=== PATIENT | female | born 1955 | race Caucasian/White ===

== ENCOUNTER → 2017-05-20 | Outpatient (CLI) | payer OTHER ==
[~2017-05-20] MED LIST: ALBU90OI61 INH; ASPI81EC PO; BUDE6HFA INH; Bentyl10 MG; CITA20 PO; CLON.1 PO; DILT240 PO; DOXE10 PO; ERGO400 PO; ESTR2 PO; HYDACE7.5 PO; HYDCHL25 PO; LANS15EC; LEVSOD25 PO; MECL12.5; META800 PO; MOMENI; OMEP20ER PO; PRAV20 PO; RANI150EL; SUCR1; TELM40 PO; TIOT18 IH; TIZA4 PO; TIZANIDINE HCL4 MG; TRIHYD253A PO
[2017-05-20 11:23] LABS: BASOPHILS ABSOLUTE AUTO 0.05 K/mm3 (0.00-0.23); BASOPHILS PERCENT AUTO 1 % (0-2); EOSINOPHILS ABSOLUTE AUTO 0.08 K/mm3 (0.00-0.68); EOSINOPHILS PERCENT AUTO 1 % (0-6); Hematocrit 50.5 % (33.0-51.0); Hemoglobin 17.8 g/dL (11.5-16.0); IMMATURE GRAN ABSOLUTE AUTO 0.04 K/mm3 (0.00-0.10); IMMATURE GRAN PERCENT AUTO 0 % (0-1); LYMPHOCYTES ABSOLUTE AUTO 1.79 K/mm3 (0.84-5.20); LYMPHOCYTES PERCENT AUTO 19 % (21-46); MONOCYTES ABSOLUTE AUTO 0.96 K/mm3 (0.16-1.47); MONOCYTES PERCENT AUTO 10 % (4-13); Mean Corpuscular HGB 32.8 pg (26.0-34.0); Mean Corpuscular HGB Conc 35.2 g/dL (31.5-36.5); Mean Corpuscular Volume 93 fL (80-100); Mean Platelet Volume 9.4 fL (9.1-12.4); NEUTROPHILS ABSOLUTE AUTO 6.47 K/mm3 (1.96-9.15); NEUTROPHILS PERCENT AUTO 69 % (41-73); Platelet Count 258 K/mm3 (150-400); RDW Coefficient Variation 13.1 % (11.7-14.2); RDW Standard Deviation 44.6 fL (35.1-46.3); Red Blood Cell Count 5.42 M/mm3 (3.80-5.20); White Blood Cell Count 9.39 K/mm3 (4.00-11.30)
[2017-05-20 11:35] LABS: Alanine Aminotransfer (ALT/SGP 31 U/L (12-78); Albumin, Blood 3.9 g/dL (3.4-5.0); Albumin/Globulin Ratio 1.1 (0.8-1.8); Alk Phos 88 U/L (40-126); Anion Gap 20 mmol/L (6-16); Aspartate Aminotrans (AST/SGOT 28 U/L (12-37); Bilirubin, Total 0.6 mg/dL (0.1-1.0); Blood Urea Nitrogen 21 mg/dL (8-24); Bun/Creatinine Ratio 23.1 (12.0-20.0); CO2, Blood 20 mmol/L (21-32); Calcium, Blood 9.5 mg/dL (8.5-10.1); Chloride, Blood 101 mmol/L (98-108); Creatinine, Blood 0.91 mg/dL (0.40-1.00); Globulin, Blood 3.5 g/dL (2.2-4.0); Glomerular Filtration Rate >60 (60-); Glucose, Blood 98 mg/dL (70-99); Sodium, Blood 141 mmol/L (136-145); Total Protein, Blood 7.4 g/dL (6.4-8.2)
== END | disposition home or self-care (01) ==
LOC: LAB SHORT 11:18 → LAB EV 11:18
PROVIDERS: Family Medicine
DX: R10.9 Unspecified abdominal pain (principal)
CPT/HCPCS: 80053; 83690; 85025

== ENCOUNTER 2017-11-19 11:15 | Day surgery (SDC) | payer OTHER ==
[~2017-11-19] VITALS: Ht 170.2 cm; Wt 60.1 kg
== END 2017-11-19 14:53 | disposition home or self-care (01) ==
LOC: ORSCSDS 11:15
PROVIDERS: Internal Medicine Gastroenterology
PROC: 0DBL8ZX Excision of Transverse Colon, Via Natural or Artificial Opening Endoscopic, Diagnostic (ICD-10-PCS; principal; 2017-11-19 12:45)
PROC: 0DBK8ZX Excision of Ascending Colon, Via Natural or Artificial Opening Endoscopic, Diagnostic (ICD-10-PCS; principal; 2017-11-19 12:45)
PROC: 0DB98ZX Excision of Duodenum, Via Natural or Artificial Opening Endoscopic, Diagnostic (ICD-10-PCS; principal; 2017-11-19 12:45)
PROC: 0DBH8ZX Excision of Cecum, Via Natural or Artificial Opening Endoscopic, Diagnostic (ICD-10-PCS; principal; 2017-11-19 12:45)
PROC: 0DB68ZX Excision of Stomach, Via Natural or Artificial Opening Endoscopic, Diagnostic (ICD-10-PCS; principal; 2017-11-19 12:45)
DX: R10.13 Epigastric pain (principal); K44.9 Diaphragmatic hernia without obstruction or gangrene; K29.80 Duodenitis without bleeding; D12.0 Benign neoplasm of cecum; D12.2 Benign neoplasm of ascending colon; D12.3 Benign neoplasm of transverse colon; K57.30 Diverticulosis of large intestine without perforation or abscess without bleeding; K64.4 Residual hemorrhoidal skin tags; K64.8 Other hemorrhoids; Z12.11 Encounter for screening for malignant neoplasm of colon; Z86.010 Personal history of colon polyps; J44.9 Chronic obstructive pulmonary disease, unspecified; I10 Essential (primary) hypertension; E03.9 Hypothyroidism, unspecified; E78.5 Hyperlipidemia, unspecified; M79.7 Fibromyalgia; I73.9 Peripheral vascular disease, unspecified; F17.210 Nicotine dependence, cigarettes, uncomplicated; Z79.82 Long term (current) use of aspirin; Z79.899 Other long term (current) drug therapy
CPT/HCPCS: 88305; 88342; J2250; J2405; J7120

== ENCOUNTER 2018-06-03 13:40 | Day surgery (SDC) | payer OTHER ==
[~2018-06-03] VITALS: Ht 170.2 cm; Wt 62.0 kg
[~2018-06-03 13:40] MED LIST changes: +ALBU2.5V5 NEB; +ANORO ELLIPTA1 EACH INH; -ASPI81EC PO; +Aspirin EC81 MG PO; +BUME2 PO; -Bentyl10 MG; +Bentyl10 MG PO; +Cardizem CD 24240 MG PO; -DILT240 PO; +GABA100 PO; +Motion Sickness25 M1 PO; +OXYC5 PO; +Omeprazole20 M1 PO; +SUCR1 PO; -TIZANIDINE HCL4 MG; +TIZANIDINE HCL4 MG PO
--- NOTE | 2018-06-03 15:37 | NUR ---
PT C/O "THROBBING" HEADACHE, ON LEFT SIDE OF HEAD & NECK. PT STS SHE EXPERIENCES SIMILIAR HEADACHES WHEN HER BP IS HIGH. PT C/O SUDDEN ONSET NAUSEA & DIZZINESS, REQUESTS HOB ELEVATED. EMESIS BAG PROVIDED, NO VOMITING OR WRETCHING AT THIS TIME.
--- NOTE | 2018-06-03 15:40 | NUR ---
BP CUFF ROTATED TO DIFFERENT ARM TO ENSURE ACCURATE READING. PRESSURES CONTINUE TO REMAIN IN 200'S DESPITE ADMINISTRATION OF APRESOLINE.
--- NOTE | 2018-06-03 15:49 | NUR ---
STANDBY ASSIST TO RESTROOM.
--- NOTE | 2018-06-03 15:50 | NUR ---
ANESTHESIA NOTIFIED OF ELEVATED BP THROUGHOUT APRESOLINE DOSES.
--- NOTE | 2018-06-03 15:52 | NUR ---
PT FLUSH, WARM TO THE TOUCH. TEMPERATE RETAKEN, 98.1 COMPLAINING OF CONTINUED NAUSEA & DIZZINESS. APPROX 10ML EMESIS VOMITED.
--- NOTE | 2018-06-03 16:08 | NUR ---
PT VOMITING. 50ML EMESIS IN BAG.
--- NOTE | 2018-06-03 16:09 | NUR ---
DR. NIÑO AT BEDSIDE TO INFORM PATIENT OF CANCELLATION OF PROCEDURE & IMPENDING TRANSFER FROM [facility] TO [facility] EMERGENCY DEPT.
--- NOTE | 2018-06-03 16:13 | NUR ---
06/03/18 1613 Amira An RECIEVED REPORT FROM IRIS AYERS AFTER CONSULTING WITH DR VAIL AND DR NIÑO, IT HAS BEEN AGREED TO SEND PT TO THE ER DUE TO SYSTOLIC >210 DESPITE 40MG HYDRALAZINE. PT BEGAN TO COMPLAIN OF NAUSEA AT APPROXIMATELY 1550 AND WRETCHED APPROXIMATELY 10ML OF LIGHT BROWN SPUTUM. PT VOMITED FOR A SECOND TIME AT 1610 50MLS. TEMPERATURE 98.[address] VAIL GAVE REPORT TO ER PHYSICIAN AND WILL TRANSFER TO ER AT THIS TIME.
[2018-06-03] MEDS ORDERED: Cartia Xt240 MG PO (17:00)
== END 2018-06-03 14:28 | disposition other institution (70) ==
LOC: ORSCSDS 13:40
DX: D12.6 Benign neoplasm of colon, unspecified (principal); Z53.9 Procedure and treatment not carried out, unspecified reason
CPT/HCPCS: J0360; J7120

== ENCOUNTER 2018-06-03 16:34 | Emergency (ER) | payer OTHER ==
[~2018-06-03] VITALS: Ht 170.2 cm; Wt 61.7 kg
[2018-06-03] MEDS ORDERED: Cartia Xt240 MG PO (17:00)
== END 2018-06-03 18:30 | disposition home or self-care (01) ==
LOC: ER 16:34
DX: R11.2 Nausea with vomiting, unspecified (principal); R51 Headache; E03.9 Hypothyroidism, unspecified; E78.5 Hyperlipidemia, unspecified; J44.9 Chronic obstructive pulmonary disease, unspecified; M19.90 Unspecified osteoarthritis, unspecified site; M79.7 Fibromyalgia; I73.9 Peripheral vascular disease, unspecified; F17.210 Nicotine dependence, cigarettes, uncomplicated
CPT/HCPCS: 70450; 93005; 93010; 96374; 96375; 99284-25; J0360; J0780; J1170; J1200; J2405; J7120

== ENCOUNTER → 2018-08-24 | Outpatient (CLI) | payer OTHER ==
[~2018-08-24] MED LIST changes: +Cartia Xt240 MG PO
== END | disposition home or self-care (01) ==
LOC: LAB SHORT 11:20 → PLD 11:20
DX: D48.5 Neoplasm of uncertain behavior of skin (principal)
CPT/HCPCS: 88305

== ENCOUNTER 2019-01-01 19:35 | Emergency (ER) | payer OTHER ==
[~2019-01-01] VITALS: Ht 170.2 cm; Wt 66.7 kg
[2019-01-01] MEDS ORDERED: [UNRECOGNIZED DRUG - OTHER] (20:20)
== END 2019-01-01 21:40 | disposition home or self-care (01) ==
LOC: ER 19:35
DX: S61.210A Laceration without foreign body of right index finger without damage to nail, initial encounter (principal); I10 Essential (primary) hypertension; J44.9 Chronic obstructive pulmonary disease, unspecified; E03.9 Hypothyroidism, unspecified; E78.5 Hyperlipidemia, unspecified; M19.90 Unspecified osteoarthritis, unspecified site; M79.7 Fibromyalgia; F17.210 Nicotine dependence, cigarettes, uncomplicated; Z88.1 Allergy status to other antibiotic agents; Z88.8 Allergy status to other drugs, medicaments and biological substances; Z79.82 Long term (current) use of aspirin; Z79.899 Other long term (current) drug therapy; W23.0XXA Caught, crushed, jammed, or pinched between moving objects, initial encounter
CPT/HCPCS: 12001; 90471; 90714; 99282-25

== ENCOUNTER → 2019-03-17 | Outpatient (CLI) | payer OTHER ==
[~2019-03-17] MED LIST changes: +[UNRECOGNIZED DRUG - OTHER]
== END ==
LOC: LAB EV 14:52 → LAB SHORT 14:52
DX: N39.0 Urinary tract infection, site not specified (principal)
CPT/HCPCS: 87077; 87086; 87186

== ENCOUNTER → 2019-03-21 | Outpatient (CLI) | payer OTHER | END | disposition home or self-care (01) | LOC: LAB SHORT 14:58 → LAB 14:58 | DX: N39.0 Urinary tract infection, site not specified (principal) | CPT/HCPCS: 87086 ==

== ENCOUNTER 2019-07-24 16:00 | Emergency (ER) | payer OTHER ==
[~2019-07-24] VITALS: Ht 170.2 cm; Wt 68.0 kg
[~2019-07-24 16:00] MED LIST changes: -ALBU2.5V5 NEB; +ALBU90OI INH; +Citalopram HBr20 MG PO; -ESTR2 PO; +ESTRADIOL2 MG PO; -LEVSOD25 PO; +LEVSOD50 PO; -[UNRECOGNIZED DRUG - OTHER]
[2019-07-24 16:33] LABS: BASOPHILS ABSOLUTE AUTO 0.17 K/mm3 (0.00-0.23); BASOPHILS PERCENT AUTO 1 % (0-2); EOSINOPHILS ABSOLUTE AUTO 0.36 K/mm3 (0.00-0.68); EOSINOPHILS PERCENT AUTO 2 % (0-6); Hematocrit 47.9 % (33.0-51.0); Hemoglobin 16.3 g/dL (11.5-16.0); IMMATURE GRAN ABSOLUTE AUTO 0.18 K/mm3 (0.00-0.10); IMMATURE GRAN PERCENT AUTO 1 % (0-1); LYMPHOCYTES ABSOLUTE AUTO 2.43 K/mm3 (0.84-5.20); LYMPHOCYTES PERCENT AUTO 12 % (21-46); MONOCYTES ABSOLUTE AUTO 0.98 K/mm3 (0.16-1.47); MONOCYTES PERCENT AUTO 5 % (4-13); Mean Corpuscular Volume 94 fL (80-100); Mean Platelet Volume 9.1 fL (9.1-12.4); NEUTROPHILS ABSOLUTE AUTO 16.22 K/mm3 (1.96-9.15); NEUTROPHILS PERCENT AUTO 80 % (41-73); Platelet Count 374 K/mm3 (150-400); RDW Coefficient Variation 12.8 % (11.7-14.2); RDW Standard Deviation 44.5 fL (35.1-46.3); Red Blood Cell Count 5.09 M/mm3 (3.80-5.20); White Blood Cell Count 20.34 K/mm3 (4.00-11.30)
[2019-07-24 16:48] LABS: Ethanol (Alcohol), Blood, Med <3 mg/dL
[2019-07-24 16:49] LABS: Alanine Aminotransfer (ALT/SGP 18 U/L (12-78); Albumin, Blood 3.7 g/dL (3.4-5.0); Alk Phos 87 U/L (50-136); Anion Gap 8 mmol/L (6-16); Aspartate Aminotrans (AST/SGOT 17 U/L (12-37); Bilirubin, Total 0.3 mg/dL (0.1-1.0); Blood Urea Nitrogen 16 mg/dL (8-24); Bun/Creatinine Ratio 21.9 (12.0-20.0); CO2, Blood 24 mmol/L (21-32); Calcium, Blood 9.5 mg/dL (8.5-10.1); Chloride, Blood 105 mmol/L (98-108); Creatinine, Blood 0.73 mg/dL (0.40-1.00); Globulin, Blood 3.8 g/dL (2.2-4.0); Glomerular Filtration Rate >60 (60-); Glucose, Blood 137 mg/dL (70-99); Potassium, Blood 3.9 mmol/L (3.5-5.5); Sodium, Blood 137 mmol/L (136-145); Total Protein, Blood 7.5 g/dL (6.4-8.2)
== END 2019-07-25 01:05 | disposition short-term general hospital (02) ==
LOC: ER 16:00
PROVIDERS: Emergency Medicine
DX: R56.9 Unspecified convulsions (principal); I16.9 Hypertensive crisis, unspecified; J44.9 Chronic obstructive pulmonary disease, unspecified; E03.9 Hypothyroidism, unspecified; I11.0 Hypertensive heart disease with heart failure; I50.9 Heart failure, unspecified; E78.5 Hyperlipidemia, unspecified; G62.9 Polyneuropathy, unspecified; I73.9 Peripheral vascular disease, unspecified; F17.210 Nicotine dependence, cigarettes, uncomplicated
CPT/HCPCS: 36415; 70496; 70498; 71045; 80053; 82947; 85025; 93005; 93010; 96365-59; 96366; 96375-59; 99285-25; G0480; J2060; J7050; Q9967

== ENCOUNTER 2020-05-16 11:19 | Emergency (ER) | payer OTHER ==
[~2020-05-16] VITALS: Ht 170.2 cm; Wt 67.6 kg
[2020-05-16] MEDS ORDERED: HYDR1TAB94 PO (12:10)
== END 2020-05-16 13:45 | disposition home or self-care (01) ==
LOC: ER 11:19
DX: M54.5 Low back pain (principal); I10 Essential (primary) hypertension; J44.9 Chronic obstructive pulmonary disease, unspecified; E03.9 Hypothyroidism, unspecified; E78.5 Hyperlipidemia, unspecified; F17.210 Nicotine dependence, cigarettes, uncomplicated; Z79.82 Long term (current) use of aspirin; Z79.899 Other long term (current) drug therapy; Z88.1 Allergy status to other antibiotic agents; Z88.8 Allergy status to other drugs, medicaments and biological substances; W00.0XXA Fall on same level due to ice and snow, initial encounter
CPT/HCPCS: 72100; 99283-25

== ENCOUNTER → 2021-01-02 | Outpatient (CLI) | payer OTHER ==
[~2021-01-02] MED LIST changes: +HYDR1TAB94 PO
== END ==
LOC: LAB 10:07 → LAB SHORT 10:07
DX: R05 Cough (principal); Z88.1 Allergy status to other antibiotic agents
CPT/HCPCS: 87070; 87205

== ENCOUNTER → 2021-04-22 | Outpatient (CLI) | payer OTHER ==
[2021-04-22 16:47] LABS: LDL/HDL RATIO 2.3; Very Low Density Lipoprot Chol 35 mg/dL (6-32)
[2021-04-22 16:50] LABS: Triiodothyronine, Free 2.63 pg/mL (2.18-3.98)
[2021-04-22 17:02] LABS: Alanine Aminotransfer (ALT/SGP 14 U/L (12-78); Albumin, Blood 3.2 g/dL (3.4-5.0); Albumin/Globulin Ratio 0.8 (0.8-1.8); Alk Phos 91 U/L (50-136); Anion Gap 1 mmol/L (6-16); Aspartate Aminotrans (AST/SGOT 12 U/L (12-37); Bilirubin, Total 0.3 mg/dL (0.1-1.0); Blood Urea Nitrogen 16 mg/dL (8-24); Bun/Creatinine Ratio 18.2 (12.0-20.0); CO2, Blood 32 mmol/L (21-32); Calcium, Blood 9.4 mg/dL (8.5-10.1); Chloride, Blood 104 mmol/L (98-108); Creatinine, Blood 0.88 mg/dL (0.40-1.00); Globulin, Blood 3.9 g/dL (2.2-4.0); Glomerular Filtration Rate >60 (60-); Glucose, Blood 92 mg/dL (70-99); Potassium, Blood 4.6 mmol/L (3.5-5.5); Sodium, Blood 137 mmol/L (136-145); Total Protein, Blood 7.1 g/dL (6.4-8.2)
[2021-04-22 20:51] LABS: CHOL/HDL RATIO 3.9; Cholesterol 244 mg/dL (50-200); Free Thyroxine 1.17 ng/dL (0.70-1.60); HDL Cholesterol 63 mg/dL (>39); Low Density Lipoprotein Chol 146 mg/dL (0-110); Triglycerides 177 mg/dL (30-160)
== END ==
LOC: LAB SHORT 09:00 → LAB 09:00
PROVIDERS: Hospitalist
DX: E03.9 Hypothyroidism, unspecified (principal); E78.5 Hyperlipidemia, unspecified; I10 Essential (primary) hypertension
CPT/HCPCS: 80053; 80061; 84439; 84443; 84481

== ENCOUNTER → 2022-06-09 | Outpatient (CLI) | payer OTHER ==
[2022-06-09 15:59] LABS: BASOPHILS ABSOLUTE AUTO 0.13 K/mm3 (0.00-0.23); BASOPHILS PERCENT AUTO 1 % (0-2); EOSINOPHILS ABSOLUTE AUTO 0.28 K/mm3 (0.00-0.68); EOSINOPHILS PERCENT AUTO 2 % (0-6); Hematocrit 46.2 % (33.0-51.0); Hemoglobin 15.9 g/dL (11.5-16.0); IMMATURE GRAN ABSOLUTE AUTO 0.05 K/mm3 (0.00-0.10); IMMATURE GRAN PERCENT AUTO 0 % (0-1); LYMPHOCYTES ABSOLUTE AUTO 2.72 K/mm3 (0.84-5.20); LYMPHOCYTES PERCENT AUTO 23 % (21-46); MONOCYTES ABSOLUTE AUTO 0.71 K/mm3 (0.16-1.47); MONOCYTES PERCENT AUTO 6 % (4-13); Mean Corpuscular HGB 32.4 pg (26.0-34.0); Mean Corpuscular HGB Conc 34.4 g/dL (31.5-36.5); Mean Corpuscular Volume 94 fL (80-100); Mean Platelet Volume 10.6 fL (9.1-12.4); NEUTROPHILS ABSOLUTE AUTO 7.87 K/mm3 (1.96-9.15); NEUTROPHILS PERCENT AUTO 67 % (41-73); Platelet Count 307 K/mm3 (150-400); RDW Coefficient Variation 12.9 % (11.7-14.2); RDW Standard Deviation 44.4 fL (35.1-46.3); White Blood Cell Count 11.76 K/mm3 (4.00-11.30)
[2022-06-09 16:11] LABS: Free Thyroxine 1.09 ng/dL (0.70-1.60)
[2022-06-09 16:16] LABS: Alanine Aminotransfer (ALT/SGP 14 U/L (12-78); Albumin, Blood 3.5 g/dL (3.4-5.0); Albumin/Globulin Ratio 1.2 (0.8-1.8); Alk Phos 83 U/L (50-136); Anion Gap 5 mmol/L (6-16); Aspartate Aminotrans (AST/SGOT 12 U/L (12-37); Bilirubin, Total 0.3 mg/dL (0.1-1.0); Blood Urea Nitrogen 14 mg/dL (8-24); Bun/Creatinine Ratio 16.6 (12.0-20.0); CHOL/HDL RATIO 3.7; CO2, Blood 30 mmol/L (21-32); Calcium, Blood 9.4 mg/dL (8.5-10.1); Chloride, Blood 104 mmol/L (98-108); Cholesterol 230 mg/dL (50-200); Creatinine, Blood 0.84 mg/dL (0.40-1.00); Globulin, Blood 2.9 g/dL (2.2-4.0); Glomerular Filtration Rate 77 (60-); Glucose, Blood 89 mg/dL (70-99); HDL Cholesterol 63 mg/dL (>39); Low Density Lipoprotein Chol 125 mg/dL (0-110); Potassium, Blood 4.7 mmol/L (3.5-5.5); Sodium, Blood 139 mmol/L (136-145); Total Protein, Blood 6.4 g/dL (6.4-8.2); Triglycerides 209 mg/dL (30-160); Triiodothyronine, Free 2.57 pg/mL (2.18-3.98); Very Low Density Lipoprot Chol 41 mg/dL (6-32)
== END | disposition home or self-care (01) ==
LOC: LAB SHORT 10:50
PROVIDERS: Hospitalist
DX: I10 Essential (primary) hypertension (principal); E03.9 Hypothyroidism, unspecified; E78.5 Hyperlipidemia, unspecified
CPT/HCPCS: 80053; 80061; 84439; 84443; 84481; 85025

== ENCOUNTER → 2023-06-15 | Outpatient (CLI) | payer OTHER ==
[2023-06-15 14:15] LABS: CHOL/HDL RATIO 2.4; Cholesterol 142 mg/dL (50-200); Free Thyroxine 1.14 ng/dL (0.70-1.60); HDL Cholesterol 60 mg/dL (>39); LDL/HDL RATIO 0.9; Low Density Lipoprotein Chol 56 mg/dL (0-110); Triglycerides 132 mg/dL (30-160); Very Low Density Lipoprot Chol 26 mg/dL (6-32)
[2023-06-16 21:07] LABS: A/G RATIO 1.7 (1.2-2.2); BILIRUBIN, TOTAL 0.4 mg/dL (0.0-1.2); CALCIUM, SERUM 9.2 mg/dL (8.7-10.3); CREATININE, SERUM 1.01 mg/dL (0.57-1.00); GLOBULIN, TOTAL 2.3 g/dL (1.5-4.5); POTASSIUM, SERUM 4.9 mmol/L (3.5-5.2); PROTEIN, TOTAL, SERUM 6.3 g/dL (6.0-8.5)
== END ==
LOC: LAB 11:55 → LAB SHORT 11:55
PROVIDERS: Hospitalist
DX: E03.9 Hypothyroidism, unspecified (principal); E78.5 Hyperlipidemia, unspecified; I10 Essential (primary) hypertension
CPT/HCPCS: 80053; 80061; 84439; 84443

== ENCOUNTER 2024-01-23 09:07 | Emergency (ER) | payer OTHER ==
[~2024-01-23] VITALS: Ht 170.2 cm; Wt 75.8 kg
[2024-01-23 09:31] VITALS: BP 194/70
[2024-01-23] MEDS ORDERED: Ketorolac Tromethamine 30mg Vial IM ONE (10:30)
[2024-01-23] MEDS ORDERED: Pregabalin 75 MG Cap PO ONE (10:30)
[2024-01-23] MEDS ORDERED: PREG75 PO (10:37)
== END 2024-01-23 10:40 | disposition home or self-care (01) ==
LOC: ER 09:07
DX: M25.552 Pain in left hip (principal); M54.32 Sciatica, left side; J44.9 Chronic obstructive pulmonary disease, unspecified; E03.9 Hypothyroidism, unspecified; E78.5 Hyperlipidemia, unspecified; I11.0 Hypertensive heart disease with heart failure; F17.210 Nicotine dependence, cigarettes, uncomplicated; Z79.82 Long term (current) use of aspirin; Z79.899 Other long term (current) drug therapy; Z88.1 Allergy status to other antibiotic agents; Z88.8 Allergy status to other drugs, medicaments and biological substances
CPT/HCPCS: 96372; 99283-25; A9270; J1885

== ENCOUNTER 2024-03-23 08:07 | Day surgery (SDC) | payer OTHER ==
[~2024-03-23] VITALS: Ht 170.2 cm; Wt 76.7 kg
[~2024-03-23 08:07] MED LIST changes: +ATOR40TA; +BUDESONIDE0.5 MG/2 M INH; +FORMOTEROL20 MCG/2 M; +GLYC2 PO; +METO25ER; +PREG75 PO; +TELMISARTAN80 MG PO; +VERA240ER
[2024-03-23] MEDS ORDERED: HYDR10 PO (09:15)
[2024-03-23] MEDS ORDERED: Heparin Sodium 1000 Units/ML 10ML MDV ONE ×3 (09:37→12:14)
[2024-03-23] MEDS ORDERED: NS 1,000 ML IV ONE ×3 (09:37→12:57)
[2024-03-23] MEDS ORDERED: Nitroglycerin 2 MG/20 ML BTL ONE ×2 (09:37→12:05)
[2024-03-23] MEDS ORDERED: NS 250 ML IV ONE (09:37)
[2024-03-23] MEDS ORDERED: Midazolam HCl 1MG / ML 2ML Vial ONE ×4 (10:03→12:41)
[2024-03-23] MEDS ORDERED: FentaNYL Citrate 50 MCG/ML 2 ML Injection ONE ×4 (10:04→12:18)
[2024-03-23] MEDS ORDERED: HydrALAZINE HCl 20 MG / ML 1ML Vial ONE ×3 (10:48→13:13)
[2024-03-23] MEDS ORDERED: Labetalol HCL 5 MG/ML 4ML Injection (Single Dose) ONE ×2 (11:03→11:24)
[2024-03-23] MEDS ORDERED: Nitroglycerin 1 INCH/GM PKT ONE (11:43)
[2024-03-23] MEDS ORDERED: NiCARdipine HCL 1,000 MCG/5 ML SYR ONE (12:06)
[2024-03-23] MEDS ORDERED: NS 500 ML IV ONE (12:10)
[2024-03-23 13:14] LABS: Hematocrit 38.5 % (33.0-51.0)
[2024-03-23] MEDS ORDERED: Heparin Sodium,Porcine/0.5 NS 500 ML IV SCH ×2 (13:40)
[2024-03-23 14:21] LABS: Source, Urine Foley catheter
[2024-03-23 14:44] LABS: Appearance, Urine Clear (Clear); Bilirubin, Urine Neg (Neg); Blood, Urine Neg (Neg); Color, Urine Yellow (P-Yellow); Glucose Qualitative, Urine Neg (Neg); Ketones, Urine Neg (Neg); Leukocyte Esterase, Urine Neg (Neg); Nitrite, Urine Neg (Neg); Protein, Urine Neg (Neg); Urobilinogen, Urine NORM (Normal)
== END 2024-03-23 23:00 | disposition home or self-care (01) ==
LOC: MHTC 08:07
PROVIDERS: Radiology Diagnostic Radiology
DX: I70.221 Atherosclerosis of native arteries of extremities with rest pain, right leg (principal); E78.5 Hyperlipidemia, unspecified; E03.9 Hypothyroidism, unspecified; J44.9 Chronic obstructive pulmonary disease, unspecified; K21.9 Gastro-esophageal reflux disease without esophagitis; I10 Essential (primary) hypertension; M19.90 Unspecified osteoarthritis, unspecified site; F17.210 Nicotine dependence, cigarettes, uncomplicated; Z79.82 Long term (current) use of aspirin; Z79.899 Other long term (current) drug therapy; Z86.73 Personal history of transient ischemic attack (TIA), and cerebral infarction without residual deficits; Z88.8 Allergy status to other drugs, medicaments and biological substances
CPT/HCPCS: 76937; 81003; 85014; 85018; 99152; 99153; A9270; C1725; C1769; C1773; C1887; C1894; J0360; J1644; J2250; J3010; J7030; J7040; J7050; Q9967

== ENCOUNTER → 2024-05-01 | Outpatient (CLI) | payer OTHER ==
[~2024-05-01] MED LIST changes: +HYDR10 PO
[2024-05-01 20:57] LABS: Bun/Creatinine Ratio 32.2 (12.0-20.0); Calcium, Blood 9.2 mg/dL (8.5-10.1); Creatinine, Blood 1.15 mg/dL (0.40-1.00); Potassium, Blood 4.5 mmol/L (3.5-5.5)
== END ==
LOC: LAB 18:22 → LAB SHORT 18:22
PROVIDERS: Hospitalist
DX: I10 Essential (primary) hypertension (principal)
CPT/HCPCS: 80048